=== PATIENT | male | born 1960 | race Caucasian/White ===

== ENCOUNTER 2019-02-10 10:14 | Emergency (ER) | payer OTHER ==
--- NOTE | 2019-02-10 10:22 | ED ---
Altered Mental Status - HPI Summary HPI Summary: This pt is a 58 y/o male presenting to [facility] via EMS from [place] [facility] for increased altered mental status over the past 3 weeks. Per EMS, pt's drove the pt to the [place] clinic to get blood work when pt became unresponsive at the [place]. EMS was called. EMS reports the pt denies any illness over the last few days. EMS reports pt was found to be tachycardic and hypotensive. EMS denies any fever. EMS states pt's abdomen was noted to be distended as well. Additionally EMS notes reported pt has had a cough for a while now. Per EMS, pt has hx of heavy alcohol drinking. HPI IS LIMITED DUE TO LEVEL 5 CAVEAT - AMS. - History Of Current Complaint Stated Complaint: WEAKNESS Hx Obtained From: Patient, EMS Hx From Patient Unobtainable Due To: Altered Mental Status Onset/Duration: Still Present Timing: Lasting Weeks Severity Currently: Moderate Character: Lethargy Aggravating Factor(s): Nothing Alleviating Factor(s): Nothing Associated Signs And Symptoms: Negative: Fever - Allergies/Home Medications Allergies/Adverse Reactions: Allergies Allergy/AdvReac Type Severity Reaction Status Date / Time No Known Allergies Allergy Verified 02/10/19 10:38 Home Medications: Home Medications Atorvastatin* [Lipitor*] 40 mg PO DAILY 02/10/19 [History Confirmed 02/10/19] Lisinopril TAB* [Prinivil TAB*] 40 mg PO DAILY 02/10/19 [History Confirmed 02/10] Metoprolol Tartrate TAB* [Lopressor TAB*] 100 mg PO BID 02/10/19 [History Confirmed 02/10/19] Sildenafil Citrate 100 mg PO DAILY PRN 02/10/19 [History Confirmed 02/10/19] Triamcinolone 0.5% OINT * 1 applic TOPICAL BID PRN 02/10/19 [History Confirmed 02/10/19] PMH/Surg Hx/FS Hx/Imm Hx Endocrine/Hematology History: Denies: Hx Diabetes Cardiovascular History: Reports: Hx Hypercholesterolemia, Hx Hypertension Respiratory History: Denies: Hx Asthma - Cancer History Cancer Type, Location and Year: Prostate CA with removal - Surgical History Surgery Procedure, Year, and Place: 2 inguinal hernias. bone graft right 5th metacarpal. plate in left wrist - Family History Known Family History: Positive: Unknown - due to level 5 caveat - pt with AMS - Social History Alcohol Use: Daily Substance Use Type: Reports: None Smoking Status (MU): Former Smoker Review of Systems - ROS Summary Review of Systems Summary: ROS IS LIMITED DUE TO LEVEL 5 CAVEAT - AMS Negative: Fever Cardiovascular: Other - POS: tachycardic, hypotensive Positive: Cough Neurological: Other - POS: Altered mental status All Other Systems Reviewed And Are Negative: No Physical Exam - Summary Physical Exam Summary: VITAL SIGNS: Reviewed. GENERAL: Patient is a well-developed and nourished male who is lying comfortable in the stretcher. Patient is not in any acute respiratory distress. Foul odor from his mouth. HEAD AND FACE: Normocephalic EYES: PERRLA, EOMI x 2. Icteric sclerae. EARS: Hearing grossly intact. MOUTH: Oropharynx within normal limits. NECK: Supple, trachea is midline, no adenopathy, no JVD, no carotid bruit. CHEST: Symmetric, no tenderness at palpation LUNGS: Crackles in both lungs. CVS: Regular rate and rhythm, S1 and S2 present, no murmurs or gallops appreciated. ABDOMEN: Soft, non-tender. Bowel sounds are normal. No abdominal abnormal pulsations. EXTREMITIES: Full ROM in all major joints, no edema, no cyanosis or clubbing. NEURO: Patient is lethargic. Alert but not oriented. SKIN: Dry and warm. Pt seems jaundice. GCS: 14 Triage Information Reviewed: Yes Vital Signs Reviewed: Yes Completion Of Physical Exam Limited Due To: Altered Mental Status Diagnostics - Laboratory Result Diagrams: 02/10/19 11:28 02/10/19 11:29 Lab Statement: Any lab studies that have been ordered have been reviewed, and results considered in the medical decision making process. - Radiology Chest XR Radiology Interpretation Completed By: Radiologist Summary of Radiographic Findings: IMPRESSION: No active cardiopulmonary disease. Dr. Cole has reviewed this report. - CT Brain CT CT Interpretation Completed By: Radiologist Summary of CT Findings: IMPRESSION: No acute intracranial pathology. Dr. Cole has reviewed this report. Abdomen/Pelvis CT CT Interpretation Completed By: Radiologist Summary of CT Findings: IMPRESSION: Hepatomegaly with fatty infiltration of liver. No hydronephrosis or nephrolithiasis. Dr. Cole has reviewed this report. - EKG 10:33 Cardiac Rate: NL - at 72 bpm EKG Rhythm: Sinus Rhythm EKG Comparison: No Significant Change - similar to prior EKG on 03/29/16. Summary of EKG Findings: No ST elevations. Re-Evaluation - Re-Evaluation First Eval Re-Evaluation Time: 13:31 Comment: Dr. Castro spoke with the pt's family and they are leaning towards having the pt be in comfort care. Second Eval Re-Evaluation Time: 13:39 Comment: Family has not made a decision yet. Cannot proceed with transfer until they make a decision on pt's code status. Altered Mental Statu Course/Dx - Course Assessment/Plan: This pt is a 58 y/o male presenting to [facility] via EMS from [place] [facility] for increased altered mental status over the past 3 weeks. Per EMS, pt's drove the pt to the [facility] to get blood work when pt became unresponsive at the [place]. EMS was called. EMS reports the pt denies any illness over the last few days. EMS reports pt was found to be tachycardic and hypotensive. EMS denies any fever. EMS states pt's abdomen was noted to be distended as well. Additionally EMS notes reported pt has had a cough for a while now. Per EMS, pt has hx of heavy alcohol drinking. Past medical history for hypertension and CAD. As per EMS the patient is also a heavy alcohol drinker. In the ED course the patient seems to be somnolent, with altered mental status. We placed the patient in a radiation monitor, IV access was obtained and blood work was obtained. A head CT and a chest x-ray were ordered. The patient is hypothermic and hypotensive therefore I believe that the patient is septic. Therefore the patient was given IV fluids 30 ccs per KG and was started on Zosyn as a broad-spectrum antibiotic. CXR IMPRESSION: NO ACTIVE CARDIOPULMONARY DISEASE. Head CT impression: No acute intracranial pathology. Blood work without a significant abnormality except for hemoglobin 10.9, hematocrit 31,platelets 132, sodium is 122, carbon dioxide is 13, chloride 81, creatinine is 10.7 for, glucose 1:30, lactic acid is 2.3, calcium 8.4, total bili is 7.8, alkaline phosphatase 294, ammonia 72, CRP is 183, BNP is 186, total protein 6.1, albumin is 3. INR is 1.18, fibrinogen is 467. ABG shows a pH of 7.28, PCO2 is 26, PO2 is 96, O2 sat is 98.9. Blood pressure has improved to 96/60. Patient was given a banana bag. Abdominal and pelvic CT IMPRESSION: HEPATOMEGALY WITH FATTY INFILTRATION OF LIVER. NO HYDRONEPHROSIS OR NEPHROLITHIASIS. Delgado catheter was placed and he has a minimal amount of urine. I discussed my physical exam and findings with Dr. Castro from Nephrology and after her assessment she recommends for the patient to be transferred to another facility since we don't have availability for dialysis. I discussed the case with Dr. Currie from [facility] [place] and he accepted the patient for transfer. I also discussed the case with Dr. Hernandez from nephrology and he also accepted the patient for transfer. Blood pressure before transfer is 106/56. - Diagnoses Provider Diagnoses: Hepatorenal syndrome, Acute renal failure, Hyponatremia, Hepatic encephalopathy - Provider Notifications Discussed Care Of Patient With: Amparo Castro Time Discussed With Above Provider: 12:36 Instructed by Provider To: Other - Discussed with Dr. Castro, casting tester, who will consult for the pt and also reports there is no hemodialysis today. [12 :56] Discussed the case with Dr. Currie, from [facility]. [13:08] Discussed with Dr. Hernandez, casting tester from [facility], who recommends a CT. [14:07] Dr. Currie and Dr. Hernandez call back and they accept the pt for transfer to [facility]. [14:14] Dr. Castro agrees with transfer to [facility]. - Critical Care Time Critical Care Time: 75-104 min Discharge - Sign-Out/Discharge Documenting (check all that apply): Patient Departure - TRANSFER to [facility] Patient Received Moderate/Deep Sedation with Procedure: No - Discharge Plan Condition: Stable Disposition: TRANS HIGHER LVL OF CARE FAC Referrals: Cortney Reyna [Primary Care Provider] - - Billing Disposition and Condition Condition: STABLE Disposition: Trans Higher Lvl of Care Fac - Attestation Statements Document Initiated by Scribe: Yes Documenting Scribe: Mervat Wallace Provider For Whom Scribe is Documenting (Include Credential): Delano Cole MD Scribe Attestation: Mervat Conley scribed for Delano Cole MD on 02/10/19 at 1427. Scribe Documentation Reviewed: Yes Provider Attestation: The documentation as recorded by the scribe, Mervat Wallace accurately reflects the service I personally performed and the decisions made by me, Delano Cole MD Status of Scribe Document: Viewed
[2019-02-10] MEDS ORDERED: Piperacillin/Tazobac ADVAN(*) 3.375 GM in NS 0.9% 100 ML* 100 ML IVPB ONE (10:26)
[2019-02-10] MEDS: NS 0.9% 1000 ML** 1,000 ML IV.FLUID IV ONE ×2 (10:39→12:53)
--- NOTE | 2019-02-10 11:44 | HP ---
History of Present Illness - History of Present Illness Reason for Visit: Sepsis History of Present Illness: 58 yo M with PMH of heavy drinking and HTN presents to the ED on 02/10 with lethargy and altered mental status, worsening over the past 3 weeks. His had taken him to the [place] for bloodwork when he became unresponsive and EMS was called. He was brought to [facility] for workup. Per he has had a cough "for a while now". EMS notes he was tachycardic and hypotensive with a distended abdomen. On evaluation in the ED he was noted to be lethargic. Remaining exam unremarkable. Head CT and CXR without acute pathology. Labwork shows new hepatorenal syndrome. Nephrology consulted and recommending transfer to facility with CRRT capability. Consulted by ED to assist with BP stabilization prior to transfer. Current BP 85/44 on 5 mcg/min of Levophed. Has received 2.7L IVF in boluses. - Past Medical History Cardiac: HTN Psych: Other - Alcohol use - Past Surgical History Past Surgical History: Hernia Repair - inguinal x 2, Other - right 5th MCP bone graft. Plate in left wrist - Past Family History Family History: Other - unable to obtain secondary to patients mental status - Past Social History Smoke: Quit Alcohol: Heavy Drugs: None Lives: With Family Review of Systems - Review of Systems Other: unable to obtain ROS due to patient's mental status. currently denying all complaints - Medications/Allergies Allergies/Adverse Reactions: Allergies Allergy/AdvReac Type Severity Reaction Status Date / Time No Known Allergies Allergy Verified 02/10/19 10:38 Medications: hx of Lisinopril and Carvedilol in 2012 Exam - Exam Vital Signs: Vital Signs (72 hours) 02/10/19 02/10/19 02/10/19 10:20 10:24 10:28 Temperature 96 F Pulse Rate 92 92 94 Respiratory 23 25 Rate Blood Pressure 79/51 79/51 (mmHg) O2 Sat by Pulse 98 100 95 Oximetry 02/10/19 10:39 Temperature Pulse Rate Respiratory Rate Blood Pressure (mmHg) O2 Sat by Pulse 100 Oximetry General: Other - somnolent. responds to some questions with delayed yes/no. HEENT: Atraumatic, Mucous membr. moist/pink Lungs: Clear to auscultation, Normal air movement Cardiovascular: Regular rate Abdomen: Normal bowel sounds, Soft, No tenderness Extremities: No clubbing, No cyanosis, No edema, Normal pulses Neurological: Other - somnolent Psych/Mental Status: Other - somnolent Assessment/Plan - Assessment/Plan Assessment: 58 yo M presents with 3 week hx of worsening mental status and cough. Plan: Cardiovascular: (1) Shock -- HR 92-94 -- SBP 79 -- Telemetry -- Levophed @ 5 mcg/min, increase to 15 mcg/min and titrate from there to MAP > 65 -- may benefit from albumin for volume expansion as pt's albumin is only 3.0 Home meds: Sildenafil, Metoprolol, lisinopril, atorvastatin Pulmonary: No acute issues -- RR 23-25 -- sats 95-100 on RA -- CXR: NAD Home meds: None Gastrointestinal: (1) Acute liver failure; (2) Hyperammonemia -- LFTs Tbili 7.80, follow trend ALK 284. follow trend AST 64. follow trend ALT 27 -- Ammonia 72, start lactulose -- diet: NPO until mental status improved -- bowel regimen: None -- ulcer prophylaxis: not indicated at this time -- GI consult Home meds: None Endocrine: No acute issues -- monitor BGs Home meds: None Renal: (1) Acute renal failure, possibly hepatorenal syndrome; (2) Hyponatremia ; (3) Hypokalemia; (4) Hypocalcemia -- strict ins and outs. 20 ml/hr -- Cr 10.74 -- Lytes Na 122 [136 in 2016] K 3.2, follow trend Ca 8.4, follow trend -- Nephrology consulted; recommending transfer to facility with CRRT capabilities -- IVF: NS @ 175ml/hr Home meds: Sildenafil Infectious disease: No acute issues -- Tmax 96 -- WBC 9.9 -- Micro 6/10 blood in progress -- ABX zosyn Home meds: None Neurologic: (1) hepatic encephalopathy; (2) hx of alcohol use -- CT brain NAD -- [facility] protocol -- lactulose for elevated ammonia Home meds: None Hematological: (1) Anemia; (2) Thrombocytopenia -- Hgb 10.9, follow trend -- Plt 132, follow trend -- Coags INR 1.18 PTT 30.9 Ddimer 467.8 -- DVT prophylaxis: SQ Lovenox Home meds: None Metabolic: (1) Renal tubular acidosis; (2) Lactic acidosis -- Lactic acid 1.1 from 2.3, follow trend -- IVF -- bicarbonate for renal acidosis Home meds: None Deep vein thrombosis prophylaxis: SQ Lovenox Dietary: not indicated at this time Condition: critical Prognosis: poor Code status:full Disposition: transfer to [place] in progress Family updated at bedside regarding interval events and plan of care Cumulative time spent in the care of this patient (excluding any procedure time) : at least 55 minutes. Patient care included clinical interview (with patient and/or family), bedside exam of the patient, review of labs, x-rays, and other ancillary data, coordination of (respiratory, nursing care, review of patient's records, discussion regarding patients management with involved consultants, primary physician, pharmacists, and other healthcare personnel (dietary, case management , physical/occupational therapy etc.) Critical care time: 55 min
[2019-02-10 11:45] LABS: Hematocrit 31 % (42-52); Hemoglobin 10.9 g/dL (14.0-18.0); Mean Corpuscular HGB Conc 35 g/dL (31-36); Mean Corpuscular Hemoglobin 36 pg (27-31); Mean Corpuscular Volume 104 fL (80-94); Mean Platelet Volume 8.9 fL (7.4-10.4); Platelet Count 132 10^3/uL (150-450); Red Blood Count 2.98 10^6 /uL (4.18-5.48); Red Cell Distribution Width 15 % (10-15); White Blood Count 9.9 10^3/uL (3.5-10.8)
[2019-02-10 12:04] LABS: BNP 186 pg/mL (<=100)
[2019-02-10 12:10] LABS: ABS Lymphocytes 1.2 10^3/ul (1.0-4.8); ABS Monocytes 0.4 10^3/ul (0-0.8); ABS Neutrophils 8.2 10^3/ul (1.5-7.7); ABS Nucleated RBC 0.2 10^3/ul; Eosinophil % 0.3 %; Lymphocyte % 11.9 %; Nucleated Red Blood Cells % 2.4
[2019-02-10 12:13] LABS: C Reactive Protein 183.45 mg/L (<8.01); Calcium 8.4 mg/dL (8.6-10.3); EGFR Non-African American 4.9 (>60); Globulin 3.1 g/dL (2-4); Total Bilirubin 7.8 mg/dL (0.2-1.0); Total Protein 6.1 g/dL (6.4-8.9); Troponin I 0.02 ng/mL (<0.04)
[2019-02-10 12:28] LABS: Activated Partial Thrombo Time 30.9 seconds (26.0-38.0); Fibrinogen 467.8 mg/dL (110.8-404.3); INR 1.18 (0.82-1.09)
[2019-02-10] MEDS ORDERED: Norepinephrine 16MCG/ML IVPRE* 4,000 MCG/250 ML BAG IV ONE ×2 (12:30→15:45)
[2019-02-10 12:42] LABS: Potassium 3.2 mmol/L (3.5-5.0)
[2019-02-10 12:52] LABS: Erythrocyte Sed Rate 76 mm/Hr (0-19)
[2019-02-10] MEDS ORDERED: Thiamine IV* 100 MG, Folic Acid IV* 1 MG, Multiple Vitamin IV ADULT* 10 ML in NS 0.9% 1... IV ONE (13:03)
[2019-02-10 13:22] LABS: Urine Appearance Turbid; Urine Bacteria 1+ (Absent); Urine Bilirubin 1+ (Negative); Urine Blood 2+ (Negative); Urine Color Amber; Urine Glucose Negative (Negative); Urine Granular Casts Present (Absent); Urine Ketones Negative (Negative); Urine Nitrite Negative (Negative); Urine Protein 2+(100 mg/dL) (Negative); Urine Red Blood Cell 3+(>10/hpf) (Absent); Urine Renal Epithelial Cells Present (Absent); Urine Specific Gravity 1.019 (1.010-1.030); Urine Squamous Epithelial Cell Present (Absent); Urine Urobilinogen Positive (Negative); Urine White Blood Cell 3+(>20/hpf) (Absent)
--- NOTE | 2019-02-10 15:58 | CONS ---
CONSULTATION REPORT: DATE OF CONSULT: 02/10/19 - EMERGENCY DEPT REQUESTING PHYSICIAN: Dr. Cole. CHIEF COMPLAINT: Lethargy, renal failure. HISTORY OF PRESENT ILLNESS: A 58-year-old male with history of hypertension and heavy alcohol use, presented to the ER with increased altered mental status. Per discussion with and son, the patient has been more lethargic over the last couple of weeks and increasingly more confused. Family reports that the patient was in good health a few weeks ago. The patient is a heavy alcohol drinker over years. drove the patient to the [facility] to get blood work. When the patient became unresponsive at the [place], EMS was called. The patient was noted to be hypotensive and the patient's abdomen was noted to be distended. PAST MEDICAL HISTORY: 1. Hypercholesterolemia. 2. Hypertension. 3. Prostate cancer with removal. 4. Inguinal hernia. 5. Bone graft, right fifth metacarpal. FAMILY HISTORY: Unknown and unable to be obtained from the patient due to altered mental status. SOCIAL HISTORY: Former smoker and per family heavy alcohol use. REVIEW OF SYSTEMS: Unable to obtain as the patient noted to be lethargic. PHYSICAL EXAM: Vitals: Temperature noted, heart rate 89, respirations 20, oxygen saturation 99%, blood pressure 96/58. HEENT: The patient noted to have some scleral icterus and somnolent. Heart: S1, S2 present. Tachycardic at the time of exam. Lungs: Clear to auscultation bilaterally. Abdomen: Distended with moderate ascites. No rebound. No guarding. Extremities noted to have some edema. Neuro: Lethargic and not able to answer any questions. DIAGNOSTIC STUDIES/LAB DATA: CT scan: Hepatomegaly with fatty infiltration of the liver. No hydronephrosis or nephrolithiasis. Labs: WBC 9.9, hemoglobin 10.9, hematocrit 31, platelets noted to be 132. Sodium 122, potassium 3.2, chloride 81, CO2 of 13, BUN 172, creatinine 10.4, lactic acid 2.3. Bilirubin noted to be 7.8, AST 64, ALT 27, alkaline phosphatase 284. CRP 183. Ammonia noted to be 72. UA positive for protein, positive for leukocyte esterase, positive for wbc's. ASSESSMENT AND PLAN: A 58-year-old male with history of heavy alcohol use, presents with: 1. Acute kidney injury, likely secondary to hepatorenal syndrome type 1, severe in nature. The patient noted to have worsening liver failure and renal failure. Other etiologies would also need to be excluded including acute tubular necrosis and prerenal causes. The patient noted to be critically ill and in altered mental status with a BUN of 172 and sodium 122 with a low blood pressure. 2. For severe symptoms, the patient would need to be in the ICU with norepinephrine and albumin trial. There is also a very high likelihood that the patient would need dialysis to help with his metabolic encephalopathy and uremic symptoms. The patient noted to be hypotensive with blood pressures in the 80s needing pressors here. In light of this, the patient would not tolerate regular hemodialysis when needed. The patient would also need sodium correction with dialysis and would be better at a facility that offers CVVH. In addition, hemodialysis capacity also not available later in the day today. In light of the patient's critical situation and likely need for CVVH, recommend the patient to be transferred to a transplant center where he could get his liver evaluated and his renal condition stabilized and specifically a center that offers CVVH if the patient needs it as the patient's risk of poor outcome on regular hemodialysis is very high. The patient could be medically managed for 24 hours; however, the patient may become more unstable if he does not turn around needing dialysis sooner. In light of all this, discussed case with the ER and the patient's family and recommend transfer to another center as we do not have the services that he needs including CVVH and further liver evaluation. 3. Comfort care option was also discussed with the patient as his chance of mortality in the next 6 months with his condition is very high and could be close to 50% to 60% and an option of comfort care in the hospital here was also discussed with the family. Both options were presented and we will wait for family's decision on further care. 4. In the interim, recommend norepinephrine and albumin for hepatorenal syndrome management and trial. Further workup with urine studies to evaluate for proteinuria and rule out other etiology can be pursued at transfer center based on the patient's decision. 5. The patient's prior labs have been reviewed. The patient's labs from 2016 indicate that his kidney function and sodium were in the normal range at that time. No further labs are available in the recent 6-month period. 6. We will need slow correction hypokalemia, which can predispose him to further hepatic encephalopathy; however, we will hold off at the current situation with his kidney numbers being very high as he would be a risk for hyperkalemia and needing dialysis sooner. 7. Also recommend sodium bicarbonate. Case discussed with the ICU attending, Dr. Briseida Cesar, who is in agreement and also discussed with the ER physician, Dr. Cole and we will be available for any further questions based on family's decision and the patient' s condition. [id number]/CPS #: [id number] MTDD
[2019-02-10] MEDS ORDERED: Sodium Bicarbonate 8.4%* 50 ML SYRINGE IV ONE (15:59)
[2019-02-10] MEDS ORDERED: NS 0.9% 1000 ML** 1,000 ML IV SCH (16:00)
[2019-02-10 16:08] VITALS: BP 110/58
== END 2019-02-10 16:07 | disposition short-term general hospital (02) ==
LOC: ED 10:14
DX: K76.7 Hepatorenal syndrome (principal); K72.90 Hepatic failure, unspecified without coma; E87.1 Hypo-osmolality and hyponatremia; R05 Cough; R41.82 Altered mental status, unspecified; I10 Essential (primary) hypertension; N19 Unspecified kidney failure; Z85.46 Personal history of malignant neoplasm of prostate; Z87.891 Personal history of nicotine dependence
CPT/HCPCS: 36415; 70450; 71045; 74176; 80053; 80320; 81003; 81015; 82140; 82550; 82803; 83605; 83880; 84484; 85025; 85384; 85610; 85652; 85730; 86140; 86850; 86900; 86901; 87040; 87077; 87086; 87186; 93005; 96361; 96365; 99285; G0480; J2543; J3411

== ENCOUNTER 2020-09-13 15:06 | Inpatient (IN) ==
[2020-09-13] MEDS ORDERED: NS 0.9% 1000 ml BAG 1,000 ML IV ONE ×2 (15:48→17:13)
[2020-09-13 16:59] LABS: Troponin I 0.01 ng/mL (<0.03)
[2020-09-13 17:04] LABS: Albumin 3.5 g/dL (3.2-5.2); Albumin/Globulin Ratio 0.9 (1-3); BUN/Creatinine Ratio 7.8 (8-20); C Reactive Protein 66.62 mg/L (<8.01); Calcium 8.9 mg/dL (8.6-10.3); EGFR African American 103.5 (>60); EGFR Non-African American 85.5 (>60); Globulin 3.9 g/dL (2-4); Total Protein 7.4 g/dL (6.4-8.9)
[2020-09-13 17:05] LABS: Potassium 2.7 mmol/L (3.5-5.0); Total Bilirubin 20.4 mg/dL (0.2-1.0)
[2020-09-13] MEDS ORDERED: Potassium Chlor 20 meq TAB.ER PO ONE ×2 (17:13→17:38)
[2020-09-13 17:15] LABS: Hematocrit 40 % (42-52); Hemoglobin 13.5 g/dL (14.0-18.0); Mean Corpuscular HGB Conc 34 g/dL (31-36); Mean Corpuscular Hemoglobin 38 pg (27-31); Red Blood Count 3.59 10^6 /uL (4.18-5.48); Red Cell Distribution Width 17 % (10-15); White Blood Count 8.7 10^3/uL (3.5-10.8)
[2020-09-13 17:20] LABS: TSH Ultra Thyroid Stim Horm 2.43 mcIU/mL (0.34-5.60)
[2020-09-13 17:33] LABS: Magnesium 1.1 mg/dL (1.9-2.7)
[2020-09-13 17:57] LABS: Mean Corpuscular Volume 111 fL (80-94)
[2020-09-13] MEDS ORDERED: Magnesium Sulfate 2 gm BAG 2 GM/50 ML BAG IVPB ONE ×2 (18:14→21:01)
[2020-09-13 18:32] LABS: ABS Lymphocytes 0.5 10^3/ul (1.0-4.8); ABS Monocytes 0.7 10^3/ul (0-0.8); ABS Neutrophils 7.4 10^3/ul (1.5-7.7); Lymphocyte % 5.9 %; Mean Platelet Volume 8.1 fL (7.4-10.4); Nucleated Red Blood Cells % 0.1; Platelet Count 70 10^3/uL (150-450)
[2020-09-13] MEDS ORDERED: Ondansetron 4 mg VIAL 2 MG/ML 2 ml VIAL IV ONE (18:50)
[2020-09-13 19:18] LABS: Urine Appearance Clear; Urine Bilirubin 2+ (Negative); Urine Blood Negative (Negative); Urine Color Amber; Urine Glucose Negative (Negative); Urine Ketones Negative (Negative); Urine Nitrite Negative (Negative); Urine Protein Negative (Negative); Urine Specific Gravity 1.014 (1.010-1.030); Urine Urobilinogen Positive (Negative)
[2020-09-13] MEDS ORDERED: LORazepam 2 mg VIAL 1 ml IV ONE (19:42)
[2020-09-13] MEDS ORDERED: Lorazepam PYXIS KEY PRN (19:42)
[2020-09-13 20:33] LABS: INR 1.45 (0.82-1.09)
[2020-09-13 22:31] LABS: Hepatitis B Surface Antigen Nonreactive (Nonreactive)
[2020-09-13 22:36] LABS: Hepatitis A Ab IgM Negative (Negative)
[2020-09-13 22:37] LABS: Hepatitis B Core IgM Nonreactive (Nonreactive)
[2020-09-13 22:48] LABS: Hepatitis C Antibody Negative (Negative)
[2020-09-13] MEDS ORDERED: cefTRIAXone 1 gm/50 mL NS BAG 1 GM/50 ML BAG IVPB SCH (23:00)
[2020-09-13] MEDS ORDERED: cefTRIAXone 2 GM ADDV.VIAL 2 GM in NS 0.9% 100 ml BAG 100 ML IV ONE (23:30)
[2020-09-13] MEDS: KCL 20 MEQ/100 ML IVPREMIX 20 MEQ/100 ML BAG IV SCH (23:40)
[2020-09-13] MEDS ORDERED: LORazepam 2 mg VIAL 1 ml IV PUSH SCH (23:45)
[2020-09-14] MEDS: cefTRIAXone 2 GM ADDV.VIAL 2 GM in NS 0.9% 100 ml BAG 100 ML IV SCH (00:41)
[2020-09-14] MEDS: KCL 20 MEQ/100 ML IVPREMIX 20 MEQ/100 ML BAG IV SCH (03:10)
[2020-09-14 07:54] LABS: ABS Basophils 0.1 10^3/ul (0-0.2); ABS Lymphocytes 0.6 10^3/ul (1.0-4.8); ABS Monocytes 0.6 10^3/ul (0-0.8); ABS Neutrophils 5.7 10^3/ul (1.5-7.7); Eosinophil % 0.2 %; Hematocrit 34 % (42-52); Hemoglobin 11.8 g/dL (14.0-18.0); Lymphocyte % 8.2 %; Mean Corpuscular HGB Conc 35 g/dL (31-36); Mean Corpuscular Hemoglobin 38 pg (27-31); Mean Corpuscular Volume 109 fL (80-94); Mean Platelet Volume 8.3 fL (7.4-10.4); Nucleated Red Blood Cells % 0.1; Platelet Count 62 10^3/uL (150-450); Red Blood Count 3.09 10^6 /uL (4.18-5.48); Red Cell Distribution Width 17 % (10-15); White Blood Count 6.9 10^3/uL (3.5-10.8)
[2020-09-14 08:09] LABS: ALT 40 U/L (7-52); AST 117 U/L (13-39); Albumin 2.7 g/dL (3.2-5.2); Albumin/Globulin Ratio 0.8 (1-3); Alkaline Phosphatase 287 U/L (34-104); Anion Gap 9 mmol/L (2-11); Blood Urea Nitrogen 7 mg/dL (6-24); CO2 Carbon Dioxide 25 mmol/L (22-32); Calcium 7.8 mg/dL (8.6-10.3); Chloride 100 mmol/L (101-111); EGFR Non-African American 100.9 (>60); Globulin 3.5 g/dL (2-4); Glucose 112 mg/dL (70-100); Potassium 3.3 mmol/L (3.5-5.0); Sodium 134 mmol/L (135-145); Total Protein 6.2 g/dL (6.4-8.9)
[2020-09-14 08:14] LABS: Magnesium 1.7 mg/dL (1.9-2.7)
[2020-09-14] MEDS ORDERED: Magnesium Sulfate 2 gm BAG 2 GM/50 ML BAG IVPB ONE (08:56)
[2020-09-14] MEDS ORDERED: KCL 20 MEQ/100 ML IVPREMIX 20 MEQ/100 ML BAG IV ONE (08:56)
[2020-09-14] MEDS: Multivitamins/Minerals TAB PO SCH (08:57)
[2020-09-14 11:48] LABS: Total Bilirubin 20.4 mg/dL (0.2-1.0)
[2020-09-14 11:57] LABS: Lipase < 10 U/L (11.0-82.0)
[2020-09-15] MEDS: cefTRIAXone 2 GM ADDV.VIAL 2 GM in NS 0.9% 100 ml BAG 100 ML IV SCH (00:44)
[2020-09-15 06:42] LABS: Albumin 2.7 g/dL (3.2-5.2); Albumin/Globulin Ratio 0.9 (1-3); BUN/Creatinine Ratio 12.6 (8-20); Calcium 8.2 mg/dL (8.6-10.3); EGFR African American 97.2 (>60); EGFR Non-African American 80.3 (>60); Potassium 3.2 mmol/L (3.5-5.0); Total Protein 5.7 g/dL (6.4-8.9)
[2020-09-15 06:45] LABS: Total Bilirubin 22.2 mg/dL (0.2-1.0)
[2020-09-15 07:04] LABS: ABS Basophils 0.1 10^3/ul (0-0.2); ABS Lymphocytes 0.6 10^3/ul (1.0-4.8); ABS Monocytes 0.6 10^3/ul (0-0.8); ABS Neutrophils 5.7 10^3/ul (1.5-7.7); Eosinophil % 0.3 %; Hematocrit 32 % (42-52); Hemoglobin 11.1 g/dL (14.0-18.0); Mean Corpuscular HGB Conc 35 g/dL (31-36); Mean Corpuscular Hemoglobin 38 pg (27-31); Mean Corpuscular Volume 110 fL (80-94); Mean Platelet Volume 8.1 fL (7.4-10.4); Platelet Count 62 10^3/uL (150-450); Red Blood Count 2.88 10^6 /uL (4.18-5.48); Red Cell Distribution Width 17 % (10-15); White Blood Count 7.1 10^3/uL (3.5-10.8)
[2020-09-15] MEDS: Multivitamins/Minerals TAB PO SCH (07:46)
[2020-09-15] MEDS: Potassium Chlor 20 meq TAB.ER PO SCH ×3 (12:46→21:02)
[2020-09-15 14:14] LABS: Magnesium 1.7 mg/dL (1.9-2.7)
[2020-09-16] MEDS: cefTRIAXone 2 GM ADDV.VIAL 2 GM in NS 0.9% 100 ml BAG 100 ML IV SCH (01:32)
[2020-09-16 04:48] LABS: ABS Lymphocytes 0.6 10^3/ul (1.0-4.8); ABS Monocytes 0.7 10^3/ul (0-0.8); ABS Neutrophils 5.2 10^3/ul (1.5-7.7); Eosinophil % 0.4 %; Hematocrit 31 % (42-52); Hemoglobin 10.8 g/dL (14.0-18.0); Lymphocyte % 8.6 %; Mean Corpuscular HGB Conc 35 g/dL (31-36); Mean Corpuscular Hemoglobin 38 pg (27-31); Mean Corpuscular Volume 109 fL (80-94); Mean Platelet Volume 8.5 fL (7.4-10.4); Nucleated Red Blood Cells % 0.1; Platelet Count 69 10^3/uL (150-450); Red Blood Count 2.83 10^6 /uL (4.18-5.48); Red Cell Distribution Width 17 % (10-15); White Blood Count 6.5 10^3/uL (3.5-10.8)
[2020-09-16 05:05] LABS: Albumin 2.7 g/dL (3.2-5.2); Albumin/Globulin Ratio 0.8 (1-3); BUN/Creatinine Ratio 12.6 (8-20); Calcium 8.3 mg/dL (8.6-10.3); EGFR African American 97.2 (>60); EGFR Non-African American 80.3 (>60); Globulin 3.3 g/dL (2-4); Potassium 3.5 mmol/L (3.5-5.0)
[2020-09-16 05:07] LABS: Magnesium 1.5 mg/dL (1.9-2.7); Total Bilirubin 21.4 mg/dL (0.2-1.0)
[2020-09-16] MEDS ORDERED: Magnesium Sulfate IV 3 GM in NS 0.9% 100 ml BAG 100 ML IVPB ONE (08:00)
[2020-09-16] MEDS: Potassium Chlor 20 meq TAB.ER PO SCH ×3 (08:43→20:05)
[2020-09-16] MEDS: Multivitamins/Minerals TAB PO SCH (08:43)
[2020-09-16] MEDS ORDERED: PrednisoLONE 3 MG/ML ORAL.SOLU 15 MG/5 ML ORAL.SOLN PO SCH ×2 (11:00→17:00)
[2020-09-16] MEDS: methylPREDNISolone SOD 40 mg/ml 1 ml VIAL IV SCH (18:50)
[2020-09-17] MEDS: cefTRIAXone 2 GM ADDV.VIAL 2 GM in NS 0.9% 100 ml BAG 100 ML IV SCH (01:19)
[2020-09-17 05:39] LABS: INR 1.58 (0.82-1.09)
[2020-09-17 05:40] LABS: ABS Lymphocytes 0.3 10^3/ul (1.0-4.8); ABS Monocytes 0.2 10^3/ul (0-0.8); ABS Neutrophils 5.2 10^3/ul (1.5-7.7); Eosinophil % 0.1 %; Hematocrit 32 % (42-52); Hemoglobin 11.2 g/dL (14.0-18.0); Lymphocyte % 5.9 %; Mean Corpuscular HGB Conc 35 g/dL (31-36); Mean Corpuscular Hemoglobin 39 pg (27-31); Mean Corpuscular Volume 111 fL (80-94); Mean Platelet Volume 8.4 fL (7.4-10.4); Nucleated Red Blood Cells % 0.2; Platelet Count 70 10^3/uL (150-450); Red Blood Count 2.91 10^6 /uL (4.18-5.48); Red Cell Distribution Width 17 % (10-15); White Blood Count 5.8 10^3/uL (3.5-10.8)
[2020-09-17 05:50] LABS: Albumin 2.8 g/dL (3.2-5.2); Albumin/Globulin Ratio 0.8 (1-3); BUN/Creatinine Ratio 13.3 (8-20); Calcium 8.1 mg/dL (8.6-10.3); EGFR African American 93.8 (>60); EGFR Non-African American 77.5 (>60); Globulin 3.6 g/dL (2-4); Potassium 4.9 mmol/L (3.5-5.0); Total Protein 6.4 g/dL (6.4-8.9)
[2020-09-17 05:53] LABS: Total Bilirubin 21.4 mg/dL (0.2-1.0)
[2020-09-17 06:27] LABS: Magnesium 1.8 mg/dL (1.9-2.7)
[2020-09-17] MEDS ORDERED: Magnesium Sulfate 2 gm BAG 2 GM/50 ML BAG IVPB ONE (07:23)
[2020-09-17] MEDS: methylPREDNISolone SOD 40 mg/ml 1 ml VIAL IV SCH (10:10)
[2020-09-17] MEDS: Multivitamins/Minerals TAB PO SCH (10:11)
[2020-09-17] MEDS: Potassium Chlor 20 meq TAB.ER PO SCH ×3 (10:11→21:31)
[2020-09-17] MEDS: PrednisoLONE 3 MG/ML ORAL.SOLU 15 MG/5 ML ORAL.SOLN PO SCH (14:57)
[2020-09-18 05:20] LABS: Hematocrit 34 % (42-52); Hemoglobin 11.6 g/dL (14.0-18.0); Mean Corpuscular HGB Conc 35 g/dL (31-36); Mean Corpuscular Hemoglobin 38 pg (27-31); Mean Corpuscular Volume 111 fL (80-94); Platelet Count 110 10^3/uL (150-450); Red Blood Count 3.02 10^6 /uL (4.18-5.48); Red Cell Distribution Width 17 % (10-15); White Blood Count 10.2 10^3/uL (3.5-10.8)
[2020-09-18 05:35] LABS: Albumin/Globulin Ratio 0.9 (1-3); Calcium 8.8 mg/dL (8.6-10.3); EGFR African American 104.8 (>60); EGFR Non-African American 86.6 (>60); Globulin 3.4 g/dL (2-4); Potassium 4.8 mmol/L (3.5-5.0); Total Protein 6.4 g/dL (6.4-8.9)
[2020-09-18 05:40] LABS: Magnesium 1.9 mg/dL (1.9-2.7)
[2020-09-18 05:51] LABS: Total Bilirubin 18.7 mg/dL (0.2-1.0)
[2020-09-18 06:13] LABS: ABS Lymphocytes 0.5 10^3/ul (1.0-4.8); ABS Monocytes 0.9 10^3/ul (0-0.8); ABS Neutrophils 8.7 10^3/ul (1.5-7.7); Lymphocyte % 4.6 %; Nucleated Red Blood Cells % 0.1
[2020-09-18] MEDS: Multivitamins/Minerals TAB PO SCH (09:24)
[2020-09-18] MEDS: PrednisoLONE 3 MG/ML ORAL.SOLU 15 MG/5 ML ORAL.SOLN PO SCH (09:25)
[2020-09-18] MEDS: Potassium Chlor 20 meq TAB.ER PO SCH ×3 (09:25→20:10)
[2020-09-19 06:10] LABS: Albumin/Globulin Ratio 0.8 (1-3); BUN/Creatinine Ratio 17.4 (8-20); Calcium 8.9 mg/dL (8.6-10.3); EGFR Non-African American 90.1 (>60); Globulin 3.7 g/dL (2-4); Potassium 4.7 mmol/L (3.5-5.0); Total Protein 6.7 g/dL (6.4-8.9)
[2020-09-19 06:17] LABS: Total Bilirubin 16.6 mg/dL (0.2-1.0)
[2020-09-19] MEDS: Multivitamins/Minerals TAB PO SCH (08:59)
[2020-09-19] MEDS: Potassium Chlor 20 meq TAB.ER PO SCH ×2 (09:00→14:09)
[2020-09-19] MEDS: PrednisoLONE 3 MG/ML ORAL.SOLU 15 MG/5 ML ORAL.SOLN PO SCH (09:01)
[2020-09-19 11:36] LABS: Magnesium 1.8 mg/dL (1.9-2.7)
[2020-09-19 13:38] VITALS: BP 109/66
== END 2020-09-19 17:47 | disposition home or self-care (01) | DRG 871 ==
LOC: ED 15:06 → MED 22:13 → MEDTELE 09-17 14:03 → MED 09-17 14:09 → MEDTELE 09-17 14:12
PROVIDERS: ADMIT Student in an Organized Health Care Education/Training Program; ATTEND Internal Medicine

== ENCOUNTER 2020-11-29 17:48 | Inpatient (IN) ==
[2020-11-29 19:01] LABS: INR 2.04 (0.82-1.09)
[2020-11-29 19:13] LABS: ABS Lymphocytes 0.5 10^3/ul (1.0-4.8); ABS Monocytes 0.8 10^3/ul (0-0.8); Eosinophil % 0.2 %; Hematocrit 35 % (42-52); Hemoglobin 11.7 g/dL (14.0-18.0); Lymphocyte % 4.8 %; Mean Corpuscular HGB Conc 34 g/dL (31-36); Mean Corpuscular Hemoglobin 37 pg (27-31); Mean Corpuscular Volume 108 fL (80-94); Mean Platelet Volume 9.2 fL (7.4-10.4); Nucleated Red Blood Cells % 0.2; Platelet Count 100 10^3/uL (150-450); Red Blood Count 3.19 10^6 /uL (4.18-5.48); Red Cell Distribution Width 18 % (10-15); White Blood Count 11.4 10^3/uL (3.5-10.8)
[2020-11-29 19:14] LABS: Acetaminophen 17 mcg/mL; Alcohol, S < 10 mg/dL (<10)
[2020-11-29 19:16] LABS: ALT 47 U/L (7-52); AST 111 U/L (13-39); Albumin 2.4 g/dL (3.2-5.2); Albumin/Globulin Ratio 0.6 (1-3); Alkaline Phosphatase 180 U/L (34-104); Anion Gap 13 mmol/L (2-11); BUN/Creatinine Ratio 7.6 (8-20); Blood Urea Nitrogen 22 mg/dL (6-24); C Reactive Protein 120.78 mg/L (<8.01); CO2 Carbon Dioxide 21 mmol/L (22-32); Calcium 8.2 mg/dL (8.6-10.3); Chloride 96 mmol/L (101-111); EGFR African American 26.7 (>60); EGFR Non-African American 22.1 (>60); Globulin 3.8 g/dL (2-4); Glucose 119 mg/dL (70-100); Lipase 10 U/L (11.0-82.0); Potassium 3.1 mmol/L (3.5-5.0); Sodium 130 mmol/L (135-145); Total Protein 6.2 g/dL (6.4-8.9)
[2020-11-29 20:52] LABS: Magnesium 1.7 mg/dL (1.9-2.7)
[2020-11-29] MEDS ORDERED: Albumin Human 25% 12.5 GM/50 ML BTL IV ONE (21:07)
[2020-11-29] MEDS ORDERED: Ondansetron 4 mg VIAL 2 MG/ML 2 ml VIAL IV PRN (21:07)
[2020-11-29] MEDS ORDERED: Albumin Human 25% 75 GM/300 ML BTL IV ONE (21:17)
[2020-11-29] MEDS: Hydrocortisone INJ 100 MG/2ML 2 ML VIAL IV SCH (21:53)
[2020-11-29] MEDS: Albumin Human 25% 25 GM/100 ML BTL IV SCH ×2 (21:55→22:04)
[2020-11-29] MEDS ORDERED: Magnesium Sulfate 2 gm BAG 2 GM/50 ML BAG IVPB ONE (22:30)
[2020-11-29] MEDS: KCL 10 MEQ/50 ML IVPREMIX 10 MEQ/50 ML BAG IV SCH (22:57)
[2020-11-29] MEDS ORDERED: Cefepime 2 GM in Dextrose 2 GM/50 ML BAG IV SCH (23:00)
[2020-11-29] MEDS ORDERED: Albumin Human 25% 25 GM/100 ML BTL IV SCH ×2 (23:00)
[2020-11-29] MEDS ORDERED: NS 0.9% 500 ml BAG 500 ML IV ONE (23:03)
[2020-11-29 23:14] LABS: Body Fluid Source Peritonial Fluid
[2020-11-29] MEDS ORDERED: Albumin Human 25% 25 GM/100 ML BTL IV ONE ×2 (23:46→23:57)
[2020-11-30] MEDS: Phenylephrine IV 50 MG in NS 0.9% 250 ml 245 ML IV SCH ×5 (00:07→22:52)
[2020-11-30 00:37] LABS: Body Fluid Band 2 %; Body Fluid Meta 1 %; Body Fluid Mono 6 %; Body Fluid Other Cells 128
[2020-11-30] MEDS ORDERED: NS 0.9% 500 ml BAG 500 ML IV ONE (02:34)
[2020-11-30 02:40] LABS: INR 2.32 (0.82-1.09)
[2020-11-30 02:41] LABS: Hematocrit 27 % (42-52); Hemoglobin 9.2 g/dL (14.0-18.0); Mean Corpuscular HGB Conc 35 g/dL (31-36); Mean Corpuscular Hemoglobin 38 pg (27-31); Mean Corpuscular Volume 108 fL (80-94); Red Blood Count 2.45 10^6 /uL (4.18-5.48); Red Cell Distribution Width 18 % (10-15); White Blood Count 10.7 10^3/uL (3.5-10.8)
[2020-11-30 02:43] LABS: Albumin 2.9 g/dL (3.2-5.2); Calcium 8.1 mg/dL (8.6-10.3); Potassium 2.8 mmol/L (3.5-5.0)
[2020-11-30 02:45] LABS: Total Bilirubin 26.6 mg/dL (0.2-1.0)
[2020-11-30 02:49] LABS: BUN/Creatinine Ratio 7.8 (8-20); EGFR African American 23.9 (>60); EGFR Non-African American 19.8 (>60); Globulin 2.8 g/dL (2-4); Total Protein 5.7 g/dL (6.4-8.9)
[2020-11-30] MEDS: KCL 10 MEQ/50 ML IVPREMIX 10 MEQ/50 ML BAG IV SCH (03:05)
[2020-11-30] MEDS: Cefepime 2 GM in Dextrose 2 GM/50 ML BAG IV SCH (03:51)
[2020-11-30 03:59] LABS: Mean Platelet Volume 9.3 fL (7.4-10.4); Platelet Count 66 10^3/uL (150-450)
[2020-11-30 04:06] LABS: Polychromasia 1+; Tear Drop Cells 1+
[2020-11-30 04:07] LABS: Acanthocytes 1+
[2020-11-30 04:09] LABS: ABS Lymphocytes 0.4 10^3/ul (1.0-4.8); ABS Monocytes 0.7 10^3/ul (0-0.8); ABS Neutrophils 9.6 10^3/ul (1.5-7.7); Eosinophil % 0.1 %; Lymphocyte % 3.4 %; Nucleated Red Blood Cells % 0.1
[2020-11-30] MEDS ORDERED: Norepinephrine 16MCG/ML IVPRE 4,000 MCG/250 ML BAG IV ONE (04:17)
[2020-11-30] MEDS: Norepinephrine 16MCG/ML IVPRE 4,000 MCG/250 ML BAG IV SCH ×4 (04:20→21:42)
[2020-11-30] MEDS: Hydrocortisone INJ 100 MG/2ML 2 ML VIAL IV SCH ×3 (05:36→21:31)
[2020-11-30 05:38] LABS: Albumin 2.9 g/dL (3.2-5.2); BUN/Creatinine Ratio 7.7 (8-20); EGFR African American 23.4 (>60); EGFR Non-African American 19.4 (>60); Globulin 2.8 g/dL (2-4); Potassium 3.4 mmol/L (3.5-5.0); Total Protein 5.7 g/dL (6.4-8.9)
[2020-11-30 05:41] LABS: Total Bilirubin 27.2 mg/dL (0.2-1.0)
[2020-11-30 06:07] LABS: Hematocrit 28 % (42-52); Hemoglobin 9.7 g/dL (14.0-18.0); Mean Corpuscular HGB Conc 35 g/dL (31-36); Mean Corpuscular Hemoglobin 37 pg (27-31); Mean Corpuscular Volume 107 fL (80-94); Mean Platelet Volume 9.8 fL (7.4-10.4); Platelet Count 91 10^3/uL (150-450); Red Cell Distribution Width 18 % (10-15); White Blood Count 16.6 10^3/uL (3.5-10.8)
[2020-11-30] MEDS: Albumin Human 25% 25 GM/100 ML BTL IV SCH ×3 (08:16→21:29)
[2020-11-30] MEDS: Pantoprazole VIAL 40 MG VIAL IV SCH (08:27)
[2020-11-30] MEDS: Multivitamins/Minerals TAB PO SCH (08:27)
[2020-11-30 08:47] LABS: ABS Basophils 0.1 10^3/ul (0-0.2); ABS Lymphocytes 0.5 10^3/ul (1.0-4.8); Lymphocyte % 2.8 %; Nucleated Red Blood Cells % 0.2
[2020-11-30 09:43] LABS: Urine Appearance Cloudy; Urine Bilirubin 2+ (Negative); Urine Blood 3+ (Negative); Urine Color Amber; Urine Glucose Negative (Negative); Urine Ketones Negative (Negative); Urine Nitrite Negative (Negative); Urine Protein 2+(100 mg/dL) (Negative); Urine Urobilinogen Positive (Negative)
[2020-11-30 09:51] LABS: Urine Creatinine Concentration 51.57 mg/dL
[2020-11-30 10:13] LABS: Urine Bacteria 1+ (Absent); Urine Red Blood Cell 3+(>10/hpf) (Absent); Urine Squamous Epithelial Cell Present (Absent); Urine White Blood Cell Trace(0-5/hpf) (Absent)
[2020-11-30 17:14] LABS: BUN/Creatinine Ratio 7.6 (8-20); Calcium 7.6 mg/dL (8.6-10.3); EGFR African American 21.2 (>60); EGFR Non-African American 17.5 (>60); Phosphorus 5.3 mg/dL (2.5-5.0); Potassium 3.6 mmol/L (3.5-5.0)
[2020-11-30 17:21] LABS: ABS Basophils 0.2 10^3/ul (0-0.2); ABS Lymphocytes 0.6 10^3/ul (1.0-4.8); ABS Monocytes 1.6 10^3/ul (0-0.8); ABS Neutrophils 17.5 10^3/ul (1.5-7.7); Eosinophil % 0.1 %; Hematocrit 28 % (42-52); Hemoglobin 9.7 g/dL (14.0-18.0); Lymphocyte % 3.2 %; Mean Corpuscular HGB Conc 34 g/dL (31-36); Mean Corpuscular Hemoglobin 38 pg (27-31); Mean Corpuscular Volume 110 fL (80-94); Mean Platelet Volume 9.5 fL (7.4-10.4); Nucleated Red Blood Cells % 0.1; Platelet Count 110 10^3/uL (150-450); Red Cell Distribution Width 19 % (10-15); White Blood Count 19.9 10^3/uL (3.5-10.8)
[2020-11-30 17:33] LABS: Magnesium 2.2 mg/dL (1.9-2.7)
[2020-11-30] MEDS: metroNIDAZOLE IV 500 MG/100ML 500 MG/100 ML BAG IVPB SCH (21:29)
[2020-11-30 21:48] LABS: Albumin 3.2 g/dL (3.2-5.2); Albumin/Globulin Ratio 1.1 (1-3); BUN/Creatinine Ratio 7.9 (8-20); Calcium 7.5 mg/dL (8.6-10.3); EGFR African American 20.3 (>60); EGFR Non-African American 16.8 (>60); Globulin 2.8 g/dL (2-4); Potassium 3.5 mmol/L (3.5-5.0)
[2020-11-30 21:54] LABS: Total Bilirubin 28.5 mg/dL (0.2-1.0)
[2020-11-30 22:43] LABS: Magnesium 2.2 mg/dL (1.9-2.7)
[2020-12-01] MEDS: Norepinephrine 16MCG/ML IVPRE 4,000 MCG/250 ML BAG IV SCH (01:57)
[2020-12-01] MEDS: Phenylephrine IV 50 MG in NS 0.9% 250 ml 245 ML IV SCH ×2 (02:53→07:35)
[2020-12-01] MEDS: Cefepime 2 GM in Dextrose 2 GM/50 ML BAG IV SCH (03:59)
[2020-12-01] MEDS ORDERED: Furosemide 40 mg/4 ml IV VIAL IV SLOW PU ONE (04:17)
[2020-12-01] MEDS ORDERED: Furosemide 40 mg/4 ml IV VIAL ONE (04:19)
[2020-12-01] MEDS ORDERED: Morphine 2 MG/ML SYRINGE ONE (04:25)
[2020-12-01 04:51] LABS: Hematocrit 30 % (42-52); Mean Corpuscular HGB Conc 33 g/dL (31-36); Mean Corpuscular Hemoglobin 37 pg (27-31); Mean Corpuscular Volume 112 fL (80-94); Mean Platelet Volume 9.4 fL (7.4-10.4); Platelet Count 143 10^3/uL (150-450); Red Blood Count 2.69 10^6 /uL (4.18-5.48); Red Cell Distribution Width 19 % (10-15); White Blood Count 25.9 10^3/uL (3.5-10.8)
[2020-12-01 04:55] LABS: Activated Partial Thrombo Time 40.4 seconds (26.0-38.0); INR 2.23 (0.82-1.09)
[2020-12-01] MEDS ORDERED: Norepinephrine *QUAD STRENGTH* 16 mg/250 mL NS per protocol IV SCH (05:00)
[2020-12-01 05:03] LABS: Albumin 3.4 g/dL (3.2-5.2); Albumin/Globulin Ratio 1.2 (1-3); Calcium 7.3 mg/dL (8.6-10.3); EGFR African American 19.2 (>60); EGFR Non-African American 15.9 (>60); Globulin 2.9 g/dL (2-4); Phosphorus 6.6 mg/dL (2.5-5.0); Potassium 3.8 mmol/L (3.5-5.0); Total Protein 6.3 g/dL (6.4-8.9)
[2020-12-01 05:06] LABS: Total Bilirubin 29.2 mg/dL (0.2-1.0)
[2020-12-01 05:16] LABS: Magnesium 2.2 mg/dL (1.9-2.7)
[2020-12-01] MEDS ORDERED: Morphine 2 MG/ML SYRINGE IV ONE (05:19)
[2020-12-01] MEDS ORDERED: Atropine 1% (ORAL/SL) 15 ML BTL SL PRN (05:47)
[2020-12-01] MEDS ORDERED: Lorazepam PYXIS KEY PRN (05:47)
[2020-12-01] MEDS: Albumin Human 25% 25 GM/100 ML BTL IV SCH ×2 (06:25→13:37)
[2020-12-01] MEDS: Hydrocortisone INJ 100 MG/2ML 2 ML VIAL IV SCH (06:25)
[2020-12-01 06:35] LABS: Tear Drop Cells 1+
[2020-12-01 06:36] LABS: Polychromasia 1+
[2020-12-01 06:42] LABS: ABS Monocytes 2.1 10^3/ul (0-0.8); ABS Neutrophils 22.7 10^3/ul (1.5-7.7); Lymphocyte % 3.9 %; Nucleated Red Blood Cells % 0.1
[2020-12-01] MEDS: LORazepam 2 mg VIAL 1 ml IV PUSH PRN ×2 (06:45→13:34)
[2020-12-01] MEDS: Morphine 2 MG/ML SYRINGE IV PRN ×3 (06:57→14:02)
[2020-12-01] MEDS: metroNIDAZOLE IV 500 MG/100ML 500 MG/100 ML BAG IVPB SCH (08:49)
[2020-12-01] MEDS: Multivitamins/Minerals TAB PO SCH (08:50)
[2020-12-01] MEDS: Pantoprazole VIAL 40 MG VIAL IV SCH (08:51)
[2020-12-01] MEDS ORDERED: Morphine 2 MG/ML SYRINGE IV PRN (13:41)
[2020-12-01 14:30] VITALS: BP 115/77
== END 2020-12-01 14:35 | disposition expired | DRG 720 ==
LOC: ED 17:48 → ICU 21:07
PROVIDERS: ADMIT Internal Medicine; ATTEND Internal Medicine